=== PATIENT | female | born 1975 | race Caucasian/White ===

== ENCOUNTER 2018-10-28 19:05 | Emergency (ER) | payer OTHER ==
[~2018-10-28] VITALS: Wt 74.5 kg
[2018-10-28] MEDS ORDERED: SOD CHLORIDE 0.9% 1,000 ML IV STA (20:54)
[2018-10-28] MEDS ORDERED: NITR-58 PO (22:46)
--- NOTE | 2018-10-28 22:48 | ERD ---
ER Documentation Chief Complaint Chief Complaint SENT BY PMD; DX ANEMIA, C/O DIZZINESS, CONFUSION X'S 1 WEEK HPI Patient is a 43-year-old female with rheumatoid arthritis who presents for anemia. The patient had laboratory studies done on October 18 and was sent for a hemoglobin of 7.7. The patient is vomiting "foam" but no blood. She says that her urine is orange as well. The patient denies rectal bleeding or other bleeding. The patient has had no antibiotics for possible urine infection as well. Upon review of old medical records this is the patient's first visit to the emergency department. The patient's primary doctor is Dr. Haas. ROS All systems reviewed and are negative except as per history of present illness. Medications Home Meds Active Scripts Nitrofurantoin Monohyd Macrocr* (Macrobid*) 100 Mg Capsr, 100 MG PO BID for 7 Days, CAP Prov:GUS YOUNG MD 10/28/18 Allergies Allergies: Coded Allergies: No Known Allergy (Unverified , 10/28/18) PMhx/Soc Hx Miscellaneous Medical Probl: Yes (ra) Hx Alcohol Use: No Hx Substance Use: No Hx Tobacco Use: No Smoking Status: Never smoker FmHx Family History: diabetes Physical Exam Vitals Vital Signs Date Temp Pulse Resp B/P (MAP) Pulse Ox O2 O2 Flow FiO2 Time Delivery Rate 10/28/18 98.9 89 18 133/82 100 Room Air 20:53 (99) 10/28/18 Nasal 20:53 Cannula 10/28/18 98.9 83 18 145/72 100 19:33 (96) Physical Exam Const: No acute distress Head: Atraumatic Eyes: Normal Conjunctiva ENT: Normal External Ears, Nose and Mouth. Neck: Full range of motion. No meningismus. Resp: Clear to auscultation bilaterally Cardio: Regular rate and rhythm, no murmurs Abd: Soft, non tender, non distended. Normal bowel sounds Skin: Pale skin Back: No midline or flank tenderness Ext: No cyanosis, or edema Neur: Awake and alert Psych: Normal Mood and Affect Result Diagram: 10/28/18 2100 10/28/18 2100 Results 24 hrs Laboratory Tests Test 10/28/18 21:00 10/28/18 21:13 White Blood Count 7.6 10^3/ul Red Blood Count 4.03 10^6/ul Hemoglobin 9.0 g/dl Hematocrit 30.4 % Mean Corpuscular Volume 75.4 fl Mean Corpuscular Hemoglobin 22.3 pg Mean Corpuscular Hemoglobin Concent 29.6 g/dl Red Cell Distribution Width 16.5 % Platelet Count 490 10^3/UL Mean Platelet Volume 9.2 fl Immature Granulocytes % 0.100 % Neutrophils % 53.9 % Lymphocytes % 34.3 % Monocytes % 9.0 % Eosinophils % 1.8 % Basophils % 0.9 % Nucleated Red Blood Cells % 0.0 /100WBC Immature Granulocytes # 0.010 10^3/ul Neutrophils # 4.1 10^3/ul Lymphocytes # 2.6 10^3/ul Monocytes # 0.7 10^3/ul Eosinophils # 0.1 10^3/ul Basophils # 0.1 10^3/ul Nucleated Red Blood Cells # 0.0 10^3/ul Prothrombin Time 11.7 Sec Prothrombin Time Ratio 0.9 INR International Normalized Ratio 0.85 Activated Partial Thromboplast Time 24.5 Sec Urine Color YELLOW Urine Clarity CLOUDY Urine pH 5.0 Urine Specific [place] 1.023 Urine Ketones TRACE mg/dL Urine Nitrite POSITIVE mg/dL Urine Bilirubin NEGATIVE mg/dL Urine Urobilinogen 2+ mg/dL Urine Leukocyte Esterase NEGATIVE [place]/ul Urine Microscopic RBC 10 /HPF Urine Microscopic WBC 5 /HPF Urine Squamous Epithelial Cells MODERATE /HPF Urine Bacteria FEW /HPF Urine Mucus FEW /HPF Urine Hemoglobin 3+ mg/dL Urine Glucose NEGATIVE mg/dL Urine Total Protein NEGATIVE mg/dl Sodium Level 142 mmol/L Potassium Level 3.9 mmol/L Chloride Level 107 mmol/L Carbon Dioxide Level 26 mmol/L Anion Gap 9 Blood Urea Nitrogen 15 mg/dl Creatinine 0.54 mg/dl Est Glomerular Filtrat Rate mL/min > 60 mL/min Glucose Level 92 mg/dl Calcium Level 9.7 mg/dl Total Bilirubin 0.4 mg/dl Direct Bilirubin 0.00 mg/dl Indirect Bilirubin 0.4 mg/dl Aspartate Amino Transf (AST/SGOT) 26 IU/L Alanine Aminotransferase (ALT/SGPT) 15 IU/L Alkaline Phosphatase 78 IU/L Troponin I < 0.012 ng/ml Total Protein 8.7 g/dl Albumin 4.9 g/dl Globulin 3.80 g/dl Albumin/Globulin Ratio 1.28 POC Beta HCG, Qualitative NEGATIVE Current Medications Medications Dose Sig/Jammie Start Time Status Last (Trade) Ordered Route PRN Stop Time Admin Dose Reason Admin Sodium 1,000 ml @ Q1H STAT 10/28/18 DC 10/28/18 Chloride 1,000 mls/hr IV 20:54 21:43 10/28/18 21:53 100 mg ONCE ONCE 10/28/18 Nitrofurantoi PO 23:00 n 10/28/18 23:01 Macrocrystals (Macrobid) Procedures/MDM EKG read by me: Rate/Rhythm: Regular rate and rhythm at a rate of 65 Intervals: Normal Impression: No evidence of ischemia or arrhythmia Patient is a 43-year-old female with rheumatoid arthritis who presents with an emia. The patient has a hemoglobin of 9.0 today does not require transfusion. Urinalysis does show acute infection and the patient was given Macrobid and a prescription for Macrobid. I do not believe she requires further work-up or admission to the hospital at this time. The patient should follow-up with the primary doctor within 1 week. She can return for worsening symptoms. Departure Diagnosis: Primary Impression: Anemia Anemia type: unspecified type Qualified Codes: D64.9 - Anemia, unspecified Additional Impressions: Dizziness Cystitis Condition: Fair Patient Instructions: Anemia, Cystitis Referrals: Your doctor Additional Instructions: Call your primary care doctor TOMORROW for an appointment during the next 1 WEEK.Tell the engineering secretary that you were referred from this facility.See the doctor sooner or return here if your condition worsens before your appointment time. GUS YOUNG MD October 28, 2018 22:48
[2018-10-28] MEDS ORDERED: NITROFURANTOIN (SR) 100 MG CAP PO ONE (23:00)
[2018-10-28 23:04] VITALS: BP 133/72; PULSE 90; RESP 16
--- NOTE | 2018-10-29 14:25 | RADRPT ---
Vent Rate: 65 bpm RR Interval: 0 msec W[place] Interval: 142 msec QRS Duration: 68 msec QT Interval: 404 msec QTC Interval: 420 msec P-R-T [place]: 64 - 60 - 56 degrees Normal sinus rhythm Normal ECG Electronically Signed By: [facility]
== END 2018-10-28 23:10 | disposition home or self-care (01) ==
LOC: E/R 19:05
DX: D64.9 Anemia, unspecified (principal); N30.90 Cystitis, unspecified without hematuria
CPT/HCPCS: 36415; 80053; 81001; 81025; 84484; 85025; 85610; 85730; 86850; 86900; 86901; 93005; J7030; Z7502; Z7610

== ENCOUNTER 2019-01-22 12:56 | Emergency (ER) | payer OTHER ==
[~2019-01-22] VITALS: Ht 154.9 cm; Wt 75.0 kg
[~2019-01-22 12:56] MED LIST: NITR-58 PO
[2019-01-22 13:00] VITALS: Ht 154.9 cm; Wt 75.0 kg
[2019-01-22] MEDS ORDERED: SOD CHLORIDE 0.9% 500 ML IV STA (13:12)
[2019-01-22] MEDS ORDERED: HYDROmorphONE 1 MG/ML SYG IV STA (13:12)
[2019-01-22] MEDS ORDERED: ONDANSETRON 4 MG INJ IV STA (13:12)
[2019-01-22 14:00] VITALS: BP 108/70; PULSE 75; RESP 18
--- NOTE | 2019-01-22 14:22 | ERD ---
ER Documentation Chief Complaint Chief Complaint VOMITING X 2 DAYS HPI 44-year-old female presents the emergency department complaining of vomiting. Patient has a long-standing history of multiple presentations for similar type episodes. Patient states over the last 2 days she is had a nonspecific visceral abdominal discomfort associated with nonbilious, nonbloody emesis. After having multiple episodes of vomiting that she was not able to control, she came to the emergency department for evaluation. She reports no concurrent fever or diarrhea. She reports no urinary or gynecologic symptoms. ROS All systems reviewed and are negative except as per history of present illness. Medications Home Meds Active Scripts Nitrofurantoin Monohyd Macrocr* (Macrobid*) 100 Mg Capsr, 100 MG PO BID for 7 Days, CAP Prov:GUS YOUNG MD 10/28/18 Allergies Allergies: Coded Allergies: No Known Allergy (Unverified , 10/28/18) PMhx/Soc Hx Miscellaneous Medical Probl: Yes (RA, ANEMIA) Hx Alcohol Use: No Hx Substance Use: No Hx Tobacco Use: No Smoking Status: Never smoker FmHx Noncontributory for chief complaint Physical Exam Vitals Vital Signs Date Temp Pulse Resp B/P (MAP) Pulse Ox O2 O2 Flow FiO2 Time Delivery Rate 01/22/19 99.3 76 18 142/81 99 13:00 (101) Physical Exam GENERAL: The patient is actively vomiting HEENT: Pupils equal, round, and reactive to light. EOMI. There is no scleral icterus. NECK: C-spine is soft and supple, there is no meningismus. There is no cervical lymphadenopathy. LUNGS: Clear to auscultation bilaterally. There are no rales, wheezes or rhonchi. HEART: Regular rate and rhythm, no murmurs, clicks, rubs or gallops. ABDOMEN: Soft, non-tender, non-distended. There are bowel sounds in all four quadrants. No rebound or guarding. EXTREMITIES: There is no peripheral cyanosis or edema. No focal swelling or erythema. NEURO: The patient moves all four extremities with 5/5 strength. Cranial nerves II - XII are intact. Normal gait. Alert and oriented SKIN: There is no apparent rash or petechiae. HEME/LYMPHATIC: There is no evidence of excessive bruising or lymphedema. PSYCHIATRIC: The patient does not appear anxious or depressed. Result Diagram: 01/22/19 1324 01/22/19 1323 Results 24 hrs Laboratory Tests Test 01/22/19 13:23 01/22/19 13:24 Sodium Level 140 mmol/L Potassium Level 3.7 mmol/L Chloride Level 106 mmol/L Carbon Dioxide Level 21 mmol/L Anion Gap 13 Blood Urea Nitrogen 9 mg/dl Creatinine 0.60 mg/dl Est Glomerular Filtrat Rate mL/min > 60 mL/min Glucose Level 113 mg/dl Calcium Level 10.5 mg/dl Total Bilirubin 0.7 mg/dl Direct Bilirubin 0.00 mg/dl Indirect Bilirubin 0.7 mg/dl Aspartate Amino Transf (AST/SGOT) 22 IU/L Alanine Aminotransferase (ALT/SGPT) 16 IU/L Alkaline Phosphatase 77 IU/L Total Protein 8.8 g/dl Albumin 5.1 g/dl Globulin 3.70 g/dl Albumin/Globulin Ratio 1.37 Lipase 102 U/L Beta HCG, Quantitative < 2.4 mIU/ml White Blood Count 8.8 10^3/ul Red Blood Count 4.38 10^6/ul Hemoglobin 9.6 g/dl Hematocrit 32.5 % Mean Corpuscular Volume 74.2 fl Mean Corpuscular Hemoglobin 21.9 pg Mean Corpuscular Hemoglobin Concent 29.5 g/dl Red Cell Distribution Width 17.2 % Platelet Count 495 10^3/UL Mean Platelet Volume 9.4 fl Immature Granulocytes % 0.300 % Neutrophils % 70.7 % Lymphocytes % 21.8 % Monocytes % 6.2 % Eosinophils % 0.2 % Basophils % 0.8 % Nucleated Red Blood Cells % 0.0 /100WBC Immature Granulocytes # 0.030 10^3/ul Neutrophils # 6.2 10^3/ul Lymphocytes # 1.9 10^3/ul Monocytes # 0.5 10^3/ul Eosinophils # 0.0 10^3/ul Basophils # 0.1 10^3/ul Nucleated Red Blood Cells # 0.0 10^3/ul Current Medications Medications Dose Sig/Jammie Start Time Status Last (Trade) Ordered Route PRN Stop Time Admin Dose Reason Admin Sodium 500 ml @ Q1H STAT 01/22/19 DC 01/22/19 Chloride 500 mls/hr IV 13:12 13:26 01/22/19 14:11 1 mg ONCE STAT 01/22/19 DC 01/22/19 Hydromorphone IV 13:12 13:26 HCl 01/22/19 13:13 (Dilaudid) Ondansetron 4 mg ONCE STAT 01/22/19 DC 01/22/19 HCl (Zofran IV 13:12 13:25 Inj) 01/22/19 13:13 Procedures/MDM Patient was taken to a room, seen and evaluated. Comfort measures were initiated. Diagnostic tests were ordered and reviewed. 3 LEAD RHYTHM STRIP: Normal sinus rhythm without ectopy REEVALUATION: 1415: Diagnostic tests were appreciated and discussed with the patient. Patient's vomiting improved significantly. Patient's abdomen remained benign. MEDICAL DECISION MAKIN-year-old female with a significant chronic medical conditions presents the emergency department with vomiting. Differential diagnosis entertained included GI and other intra-abdominal concerns, concerns or guarding polypharmacy as well as other significant issues. After supportive care in the emergency department, her vomiting is stopped and her abdomen remains benign with no clinical evidence of appendicitis, cholecystitis or other high risk intra-abdominal concerns. Her electrolytes confirmed that she has no significant dehydration. At this time, my working diagnosis at this is likely medication related. Patient appears to be otherwise nontoxic now and seems appropriate for discharge. Departure Diagnosis: Primary Impression: Vomiting Condition: Stable Patient Instructions: Vomiting (6Y-Adult) Additional Instructions: See your doctor for follow-up as discussed. Take a copy of your test results, if appropriate, to this follow-up visit. See your doctor or return here if your symptoms do not improve as expected. At any time, please return to the emergency department for any change or worsening in her symptoms. MELIZA HEIN Jan 22, 2019 14:22
== END 2019-01-22 14:50 | disposition home or self-care (01) ==
LOC: E/R 12:56
DX: R11.10 Vomiting, unspecified (principal)
CPT/HCPCS: 36415; 80053; 83690; 84702; 85025; 96374; 96375; J1170; J2405; J7040; Z7502

== ENCOUNTER 2019-01-22 21:09 | Inpatient (IN) | payer OTHER ==
[~2019-01-22] VITALS: Ht 170.2 cm; Wt 71.5 kg
[2019-01-22] MEDS ORDERED: SOD CHLORIDE 0.9% 1,000 ML IV STA (22:11)
[2019-01-22] MEDS ORDERED: PANTOPRAZOLE 40 MG INJ IV STA (22:11)
[2019-01-22] MEDS ORDERED: morphine 4 MG/ML VIAL IV STA (22:18)
[2019-01-22] MEDS ORDERED: ONDANSETRON 4 MG INJ IV STA (22:18)
--- NOTE | 2019-01-22 22:19 | ERD ---
ER Documentation Chief Complaint Chief Complaint was here in AM; same complaint; nausea vominting; black stool HPI Patient is a 44-year-old female with a history of rheumatoid arthritis who presents with vomiting and black stools. The patient has vomiting for the past 2 days as well as abdominal pain. She has vaginal bleeding. She has black stools. Her symptoms started 2 days ago. This is her second visit today for the same. She was worked up and discharged earlier. She has never had an endoscopy or colonoscopy. She is not on blood thinning medicines. Upon review of old medical records this is the patient's third visit to the ER since October 2018. Her primary doctor is Dr. Haas. ROS All systems reviewed and are negative except as per history of present illness. Medications Home Meds Active Scripts Nitrofurantoin Monohyd Macrocr* (Macrobid*) 100 Mg Capsr, 100 MG PO BID for 7 Days, CAP Prov:GUS YOUNG MD 10/28/18 Allergies Allergies: Coded Allergies: No Known Allergy (Unverified , 10/28/18) PMhx/Soc Hx Miscellaneous Medical Probl: Yes (RA, ANEMIA) Hx Alcohol Use: No Hx Substance Use: No Hx Tobacco Use: No FmHx Family History: diabetes Physical Exam Vitals Vital Signs Date Temp Pulse Resp B/P (MAP) Pulse Ox O2 O2 Flow FiO2 Time Delivery Rate 01/22/19 97.2 70 21 133/80 100 21:20 (97) Physical Exam Const: Moderate distress Head: Atraumatic Eyes: Normal Conjunctiva ENT: Normal External Ears, Nose and Mouth. Neck: Full range of motion. No meningismus. Resp: Clear to auscultation bilaterally Cardio: Regular rate and rhythm, no murmurs Abd: Soft, diffuse tenderness to palpation without rebound or guarding Skin: No petechiae or rashes Back: No midline or flank tenderness Ext: No cyanosis, or edema Neur: Awake and alert Psych: Normal Mood and Affect Result Diagram: 01/22/19223901/22/192239 Results 24 hrs Laboratory Tests Test 01/22/19 22:40 01/22/19 23:02 White Blood Count 8.0 10^3/ul Red Blood Count 4.04 10^6/ul Hemoglobin 8.8 g/dl Hematocrit 29.6 % Mean Corpuscular Volume 73.3 fl Mean Corpuscular Hemoglobin 21.8 pg Mean Corpuscular Hemoglobin Concent 29.7 g/dl Red Cell Distribution Width 17.2 % Platelet Count 465 10^3/UL Mean Platelet Volume 9.5 fl Immature Granulocytes % 0.300 % Neutrophils % 82.8 % Lymphocytes % 12.5 % Monocytes % 3.9 % Eosinophils % 0.0 % Basophils % 0.5 % Nucleated Red Blood Cells % 0.0 /100WBC Immature Granulocytes # 0.020 10^3/ul Neutrophils # 6.6 10^3/ul Lymphocytes # 1.0 10^3/ul Monocytes # 0.3 10^3/ul Eosinophils # 0.0 10^3/ul Basophils # 0.0 10^3/ul Nucleated Red Blood Cells # 0.0 10^3/ul Prothrombin Time 13.0 Sec Prothrombin Time Ratio 1.0 INR International Normalized Ratio 0.97 Activated Partial Thromboplast Time 23.0 Sec Sodium Level 140 mmol/L Potassium Level 3.4 mmol/L Chloride Level 107 mmol/L Carbon Dioxide Level 20 mmol/L Anion Gap 13 Blood Urea Nitrogen 10 mg/dl Creatinine 0.52 mg/dl Est Glomerular Filtrat Rate mL/min > 60 mL/min Glucose Level 219 mg/dl Calcium Level 10.3 mg/dl Total Bilirubin 0.6 mg/dl Direct Bilirubin 0.00 mg/dl Indirect Bilirubin 0.6 mg/dl Aspartate Amino Transf (AST/SGOT) 21 IU/L Alanine Aminotransferase (ALT/SGPT) 17 IU/L Alkaline Phosphatase 72 IU/L Troponin I < 0.012 ng/ml Total Protein 8.4 g/dl Albumin 4.9 g/dl Globulin 3.50 g/dl Albumin/Globulin Ratio 1.40 POC Beta HCG, Qualitative NEGATIVE Current Medications Medications Dose Sig/Jammie Start Time Status Last (Trade) Ordered Route PRN Stop Time Admin Dose Reason Admin Sodium 1,000 ml @ Q1H STAT 01/22/19 DC 01/22/19 Chloride 1,000 mls/hr IV 22:11 22:33 01/22/19 23:10 40 mg ONCE STAT 01/22/19 DC 01/22/19 Pantoprazole IV 22:11 22:33 (Protonix 01/22/19 22:12 Iv) Morphine 4 mg ONCE STAT 01/22/19 DC 01/22/19 Sulfate IV 22:18 22:33 (morphine) 01/22/19 22:19 Ondansetron 4 mg ONCE STAT 01/22/19 DC 01/22/19 HCl (Zofran IV 22:18 22:32 Inj) 01/22/19 22:19 Ondansetron 4 mg BRIDGE ORDER 01/22/19 HCl (Zofran PRN IV 23:30 Inj) NAUSEA/VOMITI 01/23/19 23:29 NG 650 mg ER BRIDGE 01/22/19 Acetaminophen PRN PO 23:30 (Tylenol .MILD PAIN 01/23/19 23:29 Tab) 1-3 OR TEMP Procedures/MDM EKG read by me: Rate/Rhythm: Regular rate and rhythm Intervals: Normal Impression: No evidence of ischemia or arrhythmia Patient is a 44-year-old female who presents with vomiting, abdominal pain, and black stools. Her hemoglobin is dropped from 9.6-8.8 and I am concerned about acute GI bleed. The patient has vomiting, abdominal pain, and black stools. The patient will be admitted to the care of Dr. Kim from the panel team to a medical surgical bed. The patient will be given IV fluids, Protonix, and may require GI consultation for endoscopy or colonoscopy or both. She does not require transfusion at this time. Belkys-Blatchford Bleeding Score (GBS) from [email or web address] on 01/22/2019 All calculations should be rechecked by clinician prior to use RESULT SUMMARY: 7 points A GBS greater than zero suggests a High Risk GI bleed that is likely to require medical intervention: transfusion, endoscopy, or surgery. A higher GBS also correlated with a higher likelihood of needing intervention (scores ?6 are associated with >50% risk of needing intervention) INPUTS: Hemoglobin > 8.8 g/dL BUN > 9 mg/dL Initial systolic BP > 133 mm Hg Sex > 1 = Female Heart rate ?100 > 0 = No Melena present > 1 = Yes Recent syncope > 0 = No Hepatic disease history > 0 = No Cardiac failure present > 0 = No Departure Diagnosis: Primary Impression: GI bleed GI bleed type/associated pathology: unspecified gastrointestinal hemorrhage type Qualified Codes: K92.2 - Gastrointestinal hemorrhage, unspecified Additional Impressions: Nausea and vomiting Vomiting type: unspecified Vomiting Intractability: non-intractable Qualified Codes: R11.2 - Nausea with vomiting, unspecified Abdominal pain Abdominal location: generalized Qualified Codes: R10.84 - Generalized abdominal pain Condition: Fair GUS YOUNG MD Jan 22, 2019 22:19
[2019-01-22] MEDS ORDERED: ACETAMINOPHEN 325 MG TAB PO PRN (23:30)
[2019-01-22] MEDS ORDERED: ONDANSETRON 4 MG INJ IV PRN (23:30)
[2019-01-23] MEDS ORDERED: morphine 4 MG/ML VIAL IV STA (00:12)
[2019-01-23] MEDS ORDERED: SOD CHLORIDE 0.9% 100 ML ONE (00:16)
[2019-01-23] MEDS ORDERED: IOHEXOL 300MG/ML 150 ML BTL ONE (00:16)
[2019-01-23] MEDS: SOD CHLORIDE 0.9% 1,000 ML IV SCH ×3 (00:27→12:47)
[2019-01-23] MEDS ORDERED: morphine 2 MG INJ IV PRN (00:30)
[2019-01-23] MEDS ORDERED: NACL 0.9% 3 ML SYG IV SCH (00:30)
[2019-01-23] MEDS ORDERED: ACETAMINOPHEN 325 MG TAB PO PRN (00:30)
[2019-01-23 01:16] VITALS: Ht 170.2 cm; Wt 71.5 kg
[2019-01-23 01:17] VITALS: BP 110/63; PULSE 88; RESP 19
[2019-01-23] MEDS ORDERED: HYOSCYAMINE 0.125 MG SUBL TAB PO PRN (02:30)
--- NOTE | 2019-01-23 02:56 | HP ---
Date/Time of Note Date/Time of Note DATE: 01/23/19 TIME: 02:51 Assessment/Plan VTE Prophylaxis SCD applied (from Ns): Yes Pharmacological prophylaxis: NA/contraindicated Pharm contraindication: low risk/ambulating Assessment/Plan Hospital Course This is a 44-year-old female being admitted to the [facility] floor for: #1 lower GI bleed: Patient does report dark stools. Hemoglobin did drop from 9.6 earlier today to 8.8. Will trend CBC every 6 hours. Type and screen and transfuse for hemoglobin less than 7.5 Protonix IV. We will keep the patient n.p.o. CT abdomen pelvis with and without IV contrast was ordered that showed mild biliary tree dilatation, cholelithiasis. There was no other acute abnormalities found. Her LFTs remain normal. Will consult GI . Of note patient is also currently on her menstrual cycle. #2 severe abdominal pain: Possibly secondary to gastroenteritis, biliary colic, versus genitourinary. CT of the abdomen pelvis did not show any acute abnormalities. She does have gallstones. Mild biliary dilatation however normal LFTs. Will obtain a right upper quadrant ultrasound. We will give the patient Levsin as needed. Dilaudid for pain. #3 microcytic anemia: Likely multifactorial secondary to underlying GI bleed, menstrual cycle. CBC every 6 hours. Transfuse for hemoglobin less than 7.5. Will check iron stores. Urinalysis does show RBCs however this is likely secondary to her current menstrual cycle. #4 rheumatoid arthritis: Currently denies any joint pains. Will need to confirm patient's home meds and continue when indicated #5 history of migraines: Denies any symptoms at the current time. Will need to be mindful of NSAID use given current bleeding #6 fibromyalgia: Currently not on any medications, supportive care #7 history of obesity: Patient is status post gastric bypass. #8 peripheral neuropathy: We will need to discuss if patient is on any medi cations for this. And then continue them as indicated #9 DVT GI prophylaxis: SCDs, Protonix IV Further treatment strategy will be implemented as per the clinical course. Result Diagram: 01/22/19 2240 01/22/19 2240 Results 24hrs Laboratory Tests Test 01/22/19 22:40 01/22/19 23:02 White Blood Count 8.0 Red Blood Count 4.04 L Hemoglobin 8.8 L Hematocrit 29.6 L Mean Corpuscular Volume 73.3 L Mean Corpuscular Hemoglobin 21.8 L Mean Corpuscular Hemoglobin Concent 29.7 L Red Cell Distribution Width 17.2 H Platelet Count 465 H Mean Platelet Volume 9.5 Immature Granulocytes % 0.300 Neutrophils % 82.8 H Lymphocytes % 12.5 L Monocytes % 3.9 Eosinophils % 0.0 Basophils % 0.5 Nucleated Red Blood Cells % 0.0 Immature Granulocytes # 0.020 Neutrophils # 6.6 Lymphocytes # 1.0 Monocytes # 0.3 Eosinophils # 0.0 Basophils # 0.0 Nucleated Red Blood Cells # 0.0 Erythrocyte Sedimentation Rate 20 Prothrombin Time 13.0 Prothrombin Time Ratio 1.0 INR International Normalized Ratio 0.97 Activated Partial Thromboplast Time 23.0 Sodium Level 140 Potassium Level 3.4 L Chloride Level 107 Carbon Dioxide Level 20 L Anion Gap 13 Blood Urea Nitrogen 10 Creatinine 0.52 Est Glomerular Filtrat Rate mL/min > 60 Glucose Level 219 # Calcium Level 10.3 H Total Bilirubin 0.6 Direct Bilirubin 0.00 Indirect Bilirubin 0.6 Aspartate Amino Transf (AST/SGOT) 21 Alanine Aminotransferase (ALT/SGPT) 17 Alkaline Phosphatase 72 Troponin I < 0.012 C-Reactive Protein 0.8 Total Protein 8.4 H Albumin 4.9 Globulin 3.50 H Albumin/Globulin Ratio 1.40 Lipase 99 POC Beta HCG, Qualitative NEGATIVE HPI/ROS Admit Date/Time Admit Date/Time Jan 22, 2019 at 23:16 Hx of Present Illness Chief complaint: Abdominal pain, vomiting, black stools This is a 44-year-old female with a past medical history of rheumatoid arthritis, migraines, fibromyalgia and peripheral neuropathy who presented to the emergency department with recurrent vomiting and black stools. Patient originally came to the emergency department earlier on 01/22/2019 was subsequently discharged. Her symptoms started approximately 2 days ago. She states that she did go to [facility] 2 days ago and thinks it may have started after that. She denies any fevers. Upon my examination of the patient at the bedside she did look pretty uncomfortable despite receiving morphine earlier. She also was retching. She did report dark stools as well as vaginal bleeding however she is on her menstrual cycle. She has never had a colonoscopy or endoscopy performed. Her hemoglobin was noted to be 9 point 6 in the AM and then 8.8 upon return to the emergency department. She denies any illicit drug use or alcohol use. Allergies: NKDA Medications: Unknown ROS Const: As per HPI Eyes : No pain discharge or redness or change in visual acuity ENT: No pain, sore throat, congestion, congestion, dysphagia or discharge Respiratory: No shortness of breath, cough, sputum, wheezing, or pleuritic pain Cardiovascular: No chest pain, palpitation, PND, or edema GI : As per HPI Genitourinary: As per HPI Musculoskeletal: No joint pain, back pain, neck pain, restricted range of motion in neck or joints Skin: No rash, bruising or hives Neuro: No headache, dizziness, syncope, seizure, focal weakness Endocrine: No polyuria, polydipsia, temperature intolerance Psych: No hallucination, depression, anxiety or suicidal ideation PMH/Family/Social Past Medical History Rheumatoid arthritis Migraines Fibromyalgia Arthritis History of obesity status post gastric bypass Peripheral neuropathy Medications Current Medications Ondansetron HCl (Zofran Inj) 4 mg BRIDGE ORDER PRN IV NAUSEA/VOMITING Last administered on 01/23/19at 00:27; Admin Dose 4 MG; Start 01/22/19 at 23:30; Stop 01/23/19 at 23:29 Acetaminophen (Tylenol Tab) 650 mg ER BRIDGE PRN PO .MILD PAIN 1-3 OR TEMP; Start 01/22/19 at 23:30; Stop 01/23/19 at 23:29 Sodium Chloride 1,000 ml @ 80 mls/hr [id number] IV Last administered on 01/23/19at 00:27; Admin Dose 80 MLS/HR; Start 01/23/19 at 00:17 IV Flush (NS 3 ml) 3 ml PER PROTOCOL IV ; Start 01/23/19 at 00:30 Ondansetron HCl (Zofran Inj) 4 mg Q4H PRN IV NAUSEA/VOMITING; Start 01/23/19 at 00:30 Acetaminophen (Tylenol Tab) 650 mg Q6H PRN PO .PAIN 1-3 OR TEMP; Start 01/23/19 at 00:30 Hydromorphone HCl (Dilaudid) 0.5 mg Q4H PRN IV SEVERE PAIN LEVEL 7-10; Start 01/23/19 at 02:30 Hyoscyamine (Levsin (Sl)) 0.125 mg Q4H PRN PO INTESTINAL SPASMS/CRAMPING; Start 01/23/19 at 02:30 Coded Allergies: No Known Allergy (Unverified , 10/28/18) Past Surgical History Status post gastric bypass Lower back surgery Family History Significant Family History: no pertinent family hx Social History Alcohol Use: none Smoking Status: Never smoker Drug Use: none Exam/Review of Systems Vital Signs Vitals Vital Signs Date Temp Pulse Resp B/P (MAP) Pulse Ox O2 O2 Flow FiO2 Time Delivery Rate 01/23/19 98.3 88 19 110/63 100 Room Air 01:17 (79) Intake and Output 01/22/19 01/22/19 01/23/19 1515:00 23:00 07:00 IntakeIntake Total 1000 ml BalanceBalance 1000 ml Exam Exam General: Patient in bed in severe distress from abdominal pain HEENT: Atraumatic, normocephalic. The pupils are equal, round and reactive. Extraocular motor are intact Neck: Supple with full range of motion. No rigidity or meningismus Chest: Nontender Lungs: Clear to auscultation bilaterally no crackles rales or wheezing Heart: Normal S1-S2, Regular rhythm and rate. No murmur, S3, or S4 Abdomen: Soft , generalized tenderness to palpation, nondistended , bowel sounds are present. No guarding but no rebound. No CVA tenderness ablation bilaterally Extremities: Normal to inspection, no edema no cyanosis Neurologic: Normal mental status, speech normal, cranial nerves II through XII are intact, motor and sensory are intact, Additional Comments PROCEDURE: CT abdomen and pelvis with and without contrast. CLINICAL INDICATION: Abdominal pain. TECHNIQUE: CT scan of the abdomen and pelvis with contrast was performed on a multi-detector high-resolution CT scanner. The patient was scanned before and after the uncomplicated administration of 100 cc of Omnipaque 300 intravenous contrast. Coronal and sagittal reformatted images were obtained from the axial source images. Images were reviewed on a high-resolution PACS workstation. DICOM images are available. One or more of the following dose reduction techniques were used: - Automated exposure control. - Adjustment of the mA and/or kV according to patient size. - Use of iterative reconstruction technique. Exam CTD/vol = 18.83 mGy. Total exam DLP = 2118.36 mGy-cm. COMPARISON: None. FINDINGS: Evaluation of the lung bases demonstrates minimal bibasilar atelectasis. Abdomen: The liver is normal in size with no focal mass identified. There is mild dilatation of the biliary tree. The gallbladder is not distended. Small gallstones are identified. The spleen, pancreas and bilateral adrenal glands are within normal limits. Bilateral kidneys are normal in size with symmetric enhancement. There is no radiopaque renal or ureteral calculus identified. There is no focal mass, hydronephrosis or hydroureter. There is no retroperitoneal adenopathy. The abdominal aorta is of normal caliber with scattered atherosclerotic calcifications. There is prior gastric surgery. There is no bowel obstruction or free air. A normal appendix is identified. There are few scattered colonic diverticuli without evidence of diverticulitis. There is no ascites. Pelvis: The bladder is moderately distended. The uterus and adnexa are within normal limits. There is no significant pelvic adenopathy or free fluid. Evaluation of the osseous structures demonstrates no suspicious lytic or blastic lesion. There is prior interbody fusion at L4-L5. IMPRESSION: Mild dilatation of the biliary tree. Cholelithiasis. Prior gastric surgery. Few scattered colonic diverticuli without evidence of diverticulitis. Vascular calcifications reflective of atherosclerosis. Moderately distended bladder. Otherwise no acute abnormality identified within the abdomen and pelvis. .Rick Morocho MD, Date Time Electronically viewed and signed by .Rick Morocho MD, MD on 01/23/2019 02:26 .T/ CC: MARIELY VILLANUEVA [id number] MARIELY VILLANUEVA Jan 23, 2019 02:56
[2019-01-23] MEDS: HYDROmorphONE 0.5 MG/0.5 ML SYG IV PRN ×5 (03:53→20:08)
[2019-01-23] MEDS: PANTOPRAZOLE 40 MG INJ IV SCH (06:30)
[2019-01-23 08:00] VITALS: BP 121/68; PULSE 75; RESP 18
[2019-01-23] MEDS: ONDANSETRON 4 MG INJ IV PRN ×4 (08:22→20:08)
--- NOTE | 2019-01-23 11:53 | PN ---
Date/Time of Note Date/Time of Note DATE: 01/23/19 TIME: 11:49 Assessment/Plan VTE Prophylaxis Risk score (from Ns)>0 risk: 3 SCD applied (from Ns): Yes SCD contraindicated: low risk/ambulating Pharmacological prophylaxis: NA/contraindicated Pharm contraindication: bleeding Lines/Catheters IV Catheter Type (from Nrs): Peripheral IV Assessment/Plan Hospital Course Assessment plan 1. GI bleed likely lower, appreciate GI assistance. May need colonoscopy and EGD 2. Morbid obesity status post gastric bypass. If colonoscopy is unremarkable consider hemorrhoidal bleed or even surgical stricture/ulcer 3. Chronic pain disorder on NSAIDs [place]. Continue PPI adjust therapy needs behavioral health chronic pain management 4. Chronic back pain status post surgery more than 12 months ago 5. Chronic fibromyalgia 6. Chronic migraines 7. Chronic rheumatoid arthritis review medications. 8. Gallstones 9. Anemia likely of chronic disease rule out acute blood loss 10. Past substance drug use? S: recent hematochezia 4 days. Abdominal pain crampy twisting in nature. No known aggravating or relieving factors. Positive nausea. No previous similar d iscomfort. Has been on naproxen for about 16 months post back surgery. Along with [place] has had intermittent diarrhea constipation. Recently had antibiotics for a tooth infection. No alcohol use. States she is sober clean? No history of endoscopy. O: Vital signs stable PE No pallor adenopathy or jaundice Regular no murmur gallop Clear Bowel sounds diminished mild tender nondistended no RR G No edema/vomiting/rash Result Diagram: 01/22/19223901/22/19 2240 Results 24hrs Laboratory Tests Test 01/22/19 22:40 01/22/19 23:02 01/23/19 04:42 01/23/19 07:20 White Blood 8.0 Count Red Blood Count 4.04 L Hemoglobin 8.8 L Hematocrit 29.6 L Mean Corpuscular 73.3 L Volume Mean Corpuscular 21.8 L Hemoglobin Mean Corpuscular 29.7 L Hemoglobin Teresita nt Red Cell 17.2 H Distribution Width Platelet Count 465 H Mean Platelet 9.5 Volume Immature 0.300 Granulocytes % Neutrophils % 82.8 H Lymphocytes % 12.5 L Monocytes % 3.9 Eosinophils % 0.0 Basophils % 0.5 Nucleated Red 0.0 Blood Cells % Immature 0.020 Granulocytes # Neutrophils # 6.6 Lymphocytes # 1.0 Monocytes # 0.3 Eosinophils # 0.0 Basophils # 0.0 Nucleated Red 0.0 Blood Cells # Erythrocyte 20 Sedimentation Rate Prothrombin Time 13.0 Prothrombin Time 1.0 Ratio INR 0.97 International Normalized Ratio Activated 23.0 Partial Thrombop last Time Urine Color YELLOW YELLOW Urine Clarity SLIGHTLY CLOUDY SLIGHTLY CLOUDY A A Urine pH 6.0 6.0 Urine Specific 1.025 1.046 H [place] Urine Ketones 2+ H 1+ H Urine Nitrite NEGATIVE POSITIVE A Urine Bilirubin NEGATIVE NEGATIVE Urine 1+ H NEGATIVE Urobilinogen Urine Leukocyte NEGATIVE NEGATIVE Esterase Urine > 182 H 8 H Microscopic RBC Urine 2 3 Microscopic WBC Urine Squamous FEW Epithelial Cells Urine Bacteria FEW A FEW A Urine Mucus FEW A Urine Hemoglobin 3+ H 3+ H Urine Glucose 3+ H 2+ H Urine Total 1+ H NEGATIVE Protein Sodium Level 140 Potassium Level 3.4 L Chloride Level 107 Carbon Dioxide 20 L Level Anion Gap 13 Blood Urea 10 Nitrogen Creatinine 0.52 Est Glomerular > 60 Filtrat Rate mL/min Glucose Level 219 # Calcium Level 10.3 H Total Bilirubin 0.6 Direct Bilirubin 0.00 Indirect 0.6 Bilirubin Aspartate Amino 21 Transf (AST/SGOT ) Alanine 17 Aminotransferase (ALT/SGPT) Alkaline 72 Phosphatase Troponin I < 0.012 C-Reactive 0.8 Protein Total Protein 8.4 H Albumin 4.9 Globulin 3.50 H Albumin/Globulin 1.40 Ratio Lipase 99 Procalcitonin 0.05 Urine Opiates Positive Screen Urine Negative Barbiturates Urine Negative Amphetamines Screen Urine Negative Benzodiazepines Screen Urine Cocaine Negative Screen Urine Negative Cannabinoids Ethyl Alcohol < 10.0 H Level POC Beta HCG, NEGATIVE Qualitative Iron Level 41 Total Iron 527 H Binding Capacity Percent Iron 8 L Saturation Ferritin 8.6 Exam/Review of Systems Exam Vitals Vital Signs Date Temp Pulse Resp B/P (MAP) Pulse Ox O2 O2 Flow FiO2 Time Delivery Rate 01/23/19 98.3 88 19 110/63 100 Room Air 01:17 (79) Intake and Output 01/22/19 01/22/19 01/23/19 1515:00 23:00 07:00 IntakeIntake Total 1360 ml BalanceBalance 1360 ml Results Results 24hrs Laboratory Tests Test 01/22/19 22:40 01/22/19 23:02 01/23/19 04:42 01/23/19 07:20 White Blood 8.0 Count Red Blood Count 4.04 L Hemoglobin 8.8 L Hematocrit 29.6 L Mean Corpuscular 73.3 L Volume Mean Corpuscular 21.8 L Hemoglobin Mean Corpuscular 29.7 L Hemoglobin Teresita nt Red Cell 17.2 H Distribution Width Platelet Count 465 H Mean Platelet 9.5 Volume Immature 0.300 Granulocytes % Neutrophils % 82.8 H Lymphocytes % 12.5 L Monocytes % 3.9 Eosinophils % 0.0 Basophils % 0.5 Nucleated Red 0.0 Blood Cells % Immature 0.020 Granulocytes # Neutrophils # 6.6 Lymphocytes # 1.0 Monocytes # 0.3 Eosinophils # 0.0 Basophils # 0.0 Nucleated Red 0.0 Blood Cells # Erythrocyte 20 Sedimentation Rate Prothrombin Time 13.0 Prothrombin Time 1.0 Ratio INR 0.97 International Normalized Ratio Activated 23.0 Partial Thrombop last Time Urine Color YELLOW YELLOW Urine Clarity SLIGHTLY CLOUDY SLIGHTLY CLOUDY A A Urine pH 6.0 6.0 Urine Specific 1.025 1.046 H [place] Urine Ketones 2+ H 1+ H Urine Nitrite NEGATIVE POSITIVE A Urine Bilirubin NEGATIVE NEGATIVE Urine 1+ H NEGATIVE Urobilinogen Urine Leukocyte NEGATIVE NEGATIVE Esterase Urine > 182 H 8 H Microscopic RBC Urine 2 3 Microscopic WBC Urine Squamous FEW Epithelial Cells Urine Bacteria FEW A FEW A Urine Mucus FEW A Urine Hemoglobin 3+ H 3+ H Urine Glucose 3+ H 2+ H Urine Total 1+ H NEGATIVE Protein Sodium Level 140 Potassium Level 3.4 L Chloride Level 107 Carbon Dioxide 20 L Level Anion Gap 13 Blood Urea 10 Nitrogen Creatinine 0.52 Est Glomerular > 60 Filtrat Rate mL/min Glucose Level 219 # Calcium Level 10.3 H Total Bilirubin 0.6 Direct Bilirubin 0.00 Indirect 0.6 Bilirubin Aspartate Amino 21 Transf (AST/SGOT ) Alanine 17 Aminotransferase (ALT/SGPT) Alkaline 72 Phosphatase Troponin I < 0.012 C-Reactive 0.8 Protein Total Protein 8.4 H Albumin 4.9 Globulin 3.50 H Albumin/Globulin 1.40 Ratio Lipase 99 Procalcitonin 0.05 Urine Opiates Positive Screen Urine Negative Barbiturates Urine Negative Amphetamines Screen Urine Negative Benzodiazepines Screen Urine Cocaine Negative Screen Urine Negative Cannabinoids Ethyl Alcohol < 10.0 H Level POC Beta HCG, NEGATIVE Qualitative Iron Level 41 Total Iron 527 H Binding Capacity Percent Iron 8 L Saturation Ferritin 8.6 Medications Medication Current Medications Ondansetron HCl (Zofran Inj) 4 mg BRIDGE ORDER PRN IV NAUSEA/VOMITING Last administered on 01/23/19 00:27; Admin Dose 4 MG; Start 01/22/19 at 23:30; Stop 01/23/19 at 23:29 Acetaminophen (Tylenol Tab) 650 mg ER BRIDGE PRN PO .MILD PAIN 1-3 OR TEMP; Start 01/22/19 at 23:30; Stop 01/23/19 at 23:29 Sodium Chloride 1,000 ml @ 80 mls/hr [id number] IV Last administered on 01/23/19at 00:27; Admin Dose 80 MLS/HR; Start 01/23/19 at 00:17 IV Flush (NS 3 ml) 3 ml PER PROTOCOL IV ; Start 01/23/19 at 00:30 Ondansetron HCl (Zofran Inj) 4 mg Q4H PRN IV NAUSEA/VOMITING Last administered on 01/23/19at 08:22; Admin Dose 4 MG; Start 01/23/19 at 00:30 Acetaminophen (Tylenol Tab) 650 mg Q6H PRN PO .PAIN 1-3 OR TEMP; Start 01/23/19 at 00:30 Hydromorphone HCl (Dilaudid) 0.5 mg Q4H PRN IV SEVERE PAIN LEVEL 7-10 Last ad ministered on 01/23/19at 08:22; Admin Dose 0.5 MG; Start 01/23/19 at 02:30 Hyoscyamine (Levsin (Sl)) 0.125 mg Q4H PRN PO INTESTINAL SPASMS/CRAMPING; Start 01/23/19 at 02:30 Pantoprazole (Protonix Iv) 40 mg DAILY@06 IV Last administered on 01/23/19 06:30; Admin Dose 40 MG; Start 01/23/19 at 06:00 JERRY ROMERO MD Jan 23, 2019 11:53
[2019-01-23] MEDS ORDERED: ACETAMINOPHEN 650 MG SUPP PR PRN (12:00)
[2019-01-23 14:00] VITALS: BP 114/68; PULSE 59; RESP 17
--- NOTE | 2019-01-23 15:29 | CONS ---
Assessment/Plan Assessment/Plan Assessment/Plan (Daily) Assessment: Melena/hematochezia Anemia Biliary duct dilatation on abdominal ultrasound History of gastric bypass Fatty liver Cholelithiasis Plan: EGD/colonoscopy tomorrow Keep n.p.o. after midnight Monitor H&H Transfuse hemoglobin less than 7.5 Monitor LFTs Unable to obtain MRCP due to hardware in the back Start Levsin 3 times daily Patient seen in collaboration with Dr. Bush Consultation Date/Type/Reason Admit Date/Time Jan 22, 2019 at 23:16 Date of Consultation: Jan 23, 2019 Type of Consult GI Reason for Consultation Hematochezia/melena/anemia Date/Time of Note DATE: 01/23/19 TIME: 15:17 Hx of Present Illness This is a 44-year-old female with history of gastric bypass and previous use of NSAIDs who was admitted for hematochezia/melena was found to be anemic. Abdominal ultrasound and CT showing cholelithiasis and mild biliary duct dilatation with fatty liver. Patient states her symptoms started 2 days ago with epigastric abdominal pain and bloody stools. Patient describes blood in the stool from dark to bright red. She denies drinking alcohol or smoking cigarettes. Patient has no history of EGD or colonoscopy. Patient is complaini ng of nausea but denies vomiting, hematemesis, diarrhea or constipation. The plan is to perform an EGD/colonoscopy tomorrow . Risks and benefits of the procedure have been discussed with the patient. Patient is agreeable to the procedure. Unable to obtain MRCP due to presence of the hardware in the back. Will trend LFTs and bilirubin. We will start the patient on clear liquid diet and bowel prep today. Gastrointestinal: no complaints (See HPI) Past Medical History History of gastric bypass Home Meds Active Scripts Nitrofurantoin Monohyd Macrocr* (Macrobid*) 100 Mg Capsr, 100 MG PO BID for 7 Days, CAP Prov:GUS YOUNG MD 10/28/18 Medications Current Medications Sodium Chloride 1,000 ml @ 80 mls/hr [id number] IV Last administered on 01/23/19at 12:15; Admin Dose 80 MLS/HR; Start 01/23/19 at 00:17 IV Flush (NS 3 ml) 3 ml PER PROTOCOL IV ; Start 01/23/19 at 00:30 Ondansetron HCl (Zofran Inj) 4 mg Q4H PRN IV NAUSEA/VOMITING Last administered on 01/23/19at 12:15; Admin Dose 4 MG; Start 01/23/19 at 00:30 Acetaminophen (Tylenol Tab) 650 mg Q6H PRN PO .PAIN 1-3 OR TEMP; Start 01/23/19 at 00:30 Hydromorphone HCl (Dilaudid) 0.5 mg Q4H PRN IV SEVERE PAIN LEVEL 7-10 Last administered on 01/23/19at 12:15; Admin Dose 0.5 MG; Start 01/23/19 at 02:30 Hyoscyamine (Levsin (Sl)) 0.125 mg Q4H PRN PO INTESTINAL SPASMS/CRAMPING; Start 01/23/19 at 02:30 Pantoprazole (Protonix Iv) 40 mg DAILY@06 IV Last administered on 01/23/19at 06:30; Admin Dose 40 MG; Start 01/23/19 at 06:00 Acetaminophen (Tylenol Supp) 650 mg Q6H PRN [place] FEVER; Start 01/23/19 at 12:00 Allergies: Coded Allergies: No Known Allergy (Unverified , 10/28/18) Social History Alcohol Use: none Smoking Status: Never smoker Drug Use: none Exam/Review of Systems Exam Vitals Vital Signs Date Temp Pulse Resp B/P (MAP) Pulse Ox O2 O2 Flow FiO2 Time Delivery Rate 01/23/19 98.9 59 17 114/68 99 Room Air 14:00 (83) Intake and Output 01/22/19 01/22/19 01/23/19 1515:00 23:00 07:00 IntakeIntake Total 1360 ml BalanceBalance 1360 ml Exam PHYSICAL EXAMINATION: GENERAL: Well developed, well nourished, alert & oriented x 3, in no acute distress SKIN: No lesions, no stigmata chronic liver disease, no evidence of bleeding diathesis LYMPHATIC: No palpable lymphadenopathy. HEAD: Normocephalic, atraumatic, no tenderness. EYES: Pupils equal reactive to light and accommodation, full extraocular movements, sclera clear, non-icteric, no discharge. EARS/NOSE AND THROAT: Ears normal, nose normal, oropharynx normal, oral membranes well hydrated without lesions. NECK: Supple, no masses, thyroid normal, JVP within normal limits, carotids normal without bruits. CHEST: Inspection within normal limits. CARDIOVASCULAR: Heart: Regular rate and rhythm, no murmurs, gallops or rubs. Peripheral pulses present within normal limits, no cyanosis, clubbing or edemas. No pulsatile abdominal mass RESPIRATORY: Lungs clear to auscultation and percussion, no wheezing, no rubs GASTROINTESTINAL AND LIVER: Abdomen: Soft, generalized abdominal tenderness, non-distended, no hernias, no masses, no organomegaly, no ascites, no guarding, no rebound tenderness, normoactive bowel sounds. Rectal: Deferred. GENITOURINARY: Female genitalia within normal limits. EXTREMITIES: No cyanosis, clubbing or edema. Results Result Diagram: 01/22/19223901/22/192239 Results 24hrs Laboratory Tests Test 01/22/19 22:40 01/22/19 23:02 01/23/19 04:42 01/23/19 07:20 White Blood 8.0 Count Red Blood Count 4.04 L Hemoglobin 8.8 L Hematocrit 29.6 L Mean Corpuscular 73.3 L Volume Mean Corpuscular 21.8 L Hemoglobin Mean Corpuscular 29.7 L Hemoglobin Teresita nt Red Cell 17.2 H Distribution Width Platelet Count 465 H Mean Platelet 9.5 Volume Immature 0.300 Granulocytes % Neutrophils % 82.8 H Lymphocytes % 12.5 L Monocytes % 3.9 Eosinophils % 0.0 Basophils % 0.5 Nucleated Red 0.0 Blood Cells % Immature 0.020 Granulocytes # Neutrophils # 6.6 Lymphocytes # 1.0 Monocytes # 0.3 Eosinophils # 0.0 Basophils # 0.0 Nucleated Red 0.0 Blood Cells # Erythrocyte 20 Sedimentation Rate Prothrombin Time 13.0 Prothrombin Time 1.0 Ratio INR 0.97 International Normalized Ratio Activated 23.0 Partial Thrombop last Time Urine Color YELLOW YELLOW Urine Clarity SLIGHTLY CLOUDY SLIGHTLY CLOUDY A A Urine pH 6.0 6.0 Urine Specific 1.025 1.046 H [place] Urine Ketones 2+ H 1+ H Urine Nitrite NEGATIVE POSITIVE A Urine Bilirubin NEGATIVE NEGATIVE Urine 1+ H NEGATIVE Urobilinogen Urine Leukocyte NEGATIVE NEGATIVE Esterase Urine > 182 H 8 H Microscopic RBC Urine 2 3 Microscopic WBC Urine Squamous FEW Epithelial Cells Urine Bacteria FEW A FEW A Urine Mucus FEW A Urine Hemoglobin 3+ H 3+ H Urine Glucose 3+ H 2+ H Urine Total 1+ H NEGATIVE Protein Sodium Level 140 Potassium Level 3.4 L Chloride Level 107 Carbon Dioxide 20 L Level Anion Gap 13 Blood Urea 10 Nitrogen Creatinine 0.52 Est Glomerular > 60 Filtrat Rate mL/min Glucose Level 219 # Calcium Level 10.3 H Total Bilirubin 0.6 Direct Bilirubin 0.00 Indirect 0.6 Bilirubin Aspartate Amino 21 Transf (AST/SGOT ) Alanine 17 Aminotransferase (ALT/SGPT) Alkaline 72 Phosphatase Troponin I < 0.012 C-Reactive 0.8 Protein Total Protein 8.4 H Albumin 4.9 Globulin 3.50 H Albumin/Globulin 1.40 Ratio Lipase 99 Procalcitonin 0.05 Urine Opiates Positive Screen Urine Negative Barbiturates Urine Negative Amphetamines Screen Urine Negative Benzodiazepines Screen Urine Cocaine Negative Screen Urine Negative Cannabinoids Ethyl Alcohol < 10.0 H Level POC Beta HCG, NEGATIVE Qualitative Iron Level 41 Total Iron 527 H Binding Capacity Percent Iron 8 L Saturation Ferritin 8.6 Medications Medication Current Medications Sodium Chloride 1,000 ml @ 80 mls/hr [id number] IV Last administered on 01/23/19at 12:15; Admin Dose 80 MLS/HR; Start 01/23/19 at 00:17 IV Flush (NS 3 ml) 3 ml PER PROTOCOL IV ; Start 01/23/19 at 00:30 Ondansetron HCl (Zofran Inj) 4 mg Q4H PRN IV NAUSEA/VOMITING Last administered on 01/23/19at 12:15; Admin Dose 4 MG; Start 01/23/19 at 00:30 Acetaminophen (Tylenol Tab) 650 mg Q6H PRN PO .PAIN 1-3 OR TEMP; Start 01/23/19 at 00:30 Hydromorphone HCl (Dilaudid) 0.5 mg Q4H PRN IV SEVERE PAIN LEVEL 7-10 Last administered on 01/23/19at 12:15; Admin Dose 0.5 MG; Start 01/23/19 at 02:30 Hyoscyamine (Levsin (Sl)) 0.125 mg Q4H PRN PO INTESTINAL SPASMS/CRAMPING; Start 01/23/19 at 02:30 Pantoprazole (Protonix Iv) 40 mg DAILY@06 IV Last administered on 01/23/19at 06:30; Admin Dose 40 MG; Start 01/23/19 at 06:00 Acetaminophen (Tylenol Supp) 650 mg Q6H PRN [place] FEVER; Start 01/23/19 at 12:00 MISTY CAZARES NP Jan 23, 2019 15:28
[2019-01-23] MEDS ORDERED: BISACODYL (EC) 5 MG TAB PO ONE ×2 (15:30→21:00)
[2019-01-23] MEDS ORDERED: MAGNESIUM CITRATE 300 ML BTL PO ONE (17:30)
[2019-01-23] MEDS ORDERED: POLYETHYLENE GLYCOL 3350 119 GM POWDER PO ONE ×2 (18:30→21:00)
[2019-01-23 20:16] VITALS: BP 163/88; PULSE 66; RESP 17
[2019-01-23] MEDS: HYOSCYAMINE 0.125 MG SUBL TAB PO SCH (21:43)
[2019-01-24] VITALS (12 sets, daily range): BP systolic 90–183; BP diastolic 48–86; PULSE 60–81; RESP 15–18
[2019-01-24] MEDS: ONDANSETRON 4 MG INJ IV PRN ×6 (00:01→21:53)
[2019-01-24] MEDS: HYDROmorphONE 0.5 MG/0.5 ML SYG IV PRN ×6 (00:02→21:50)
[2019-01-24] MEDS: SOD CHLORIDE 0.9% 1,000 ML IV SCH (01:20)
[2019-01-24] MEDS: HYOSCYAMINE 0.125 MG SUBL TAB PO SCH ×3 (05:36→21:23)
[2019-01-24] MEDS: PANTOPRAZOLE 40 MG INJ IV SCH (05:36)
[2019-01-24] MEDS: POTASSIUM CHLORIDE 100 ML IVPB SCH ×2 (13:46→18:45)
--- NOTE | 2019-01-24 15:31 | PN ---
Date/Time of Note Date/Time of Note DATE: 01/24/19 TIME: 15:30 Assessment/Plan VTE Prophylaxis Risk score (from Ns)>0 risk: 1 SCD applied (from Ns): Yes Pharmacological prophylaxis: NA/contraindicated Pharm contraindication: bleeding Lines/Catheters IV Catheter Type (from Nrs): Peripheral IV Assessment/Plan Hospital Course 1. Acute blood loss anemia likely secondary to lower GI bleed GI consultation appreciated, plan for EGD and colonoscopy today 2. Morbid obesity status post gastric bypass. If colonoscopy is unremarkable consider hemorrhoidal bleed or even surgical stricture/ulcer 3. Chronic pain disorder on NSAIDs [place]. Continue PPI adjust therapy needs behavioral health chronic pain management 4. Chronic back pain status post surgery more than 12 months ago 5. Chronic fibromyalgia 6. Chronic migraines 7. Chronic rheumatoid arthritis review medications. 8. Gallstones 9. Anemia likely of chronic disease rule out acute blood loss 10. Past substance drug use Prophylaxis: SCDs Result Diagram: 01/24/19 0516 01/24/19 0516 Results 24hrs Laboratory Tests Test 01/23/19 20:57 01/24/19 05:16 Hemoglobin 8.6 L 8.5 L Hematocrit 29.6 L 28.8 L White Blood Count 10.7 # Red Blood Count 3.87 L Mean Corpuscular Volume 74.4 L Mean Corpuscular Hemoglobin 22.0 L Mean Corpuscular Hemoglobin Concent 29.5 L Red Cell Distribution Width 17.9 H Platelet Count 405 Mean Platelet Volume 9.8 Immature Granulocytes % 0.300 Neutrophils % 82.1 H Lymphocytes % 12.0 L Monocytes % 5.2 Eosinophils % 0.0 Basophils % 0.4 Nucleated Red Blood Cells % 0.0 Immature Granulocytes # 0.030 Neutrophils # 8.8 H Lymphocytes # 1.3 Monocytes # 0.6 Eosinophils # 0.0 Basophils # 0.0 Nucleated Red Blood Cells # 0.0 Sodium Level 138 Potassium Level 3.3 L Chloride Level 105 Carbon Dioxide Level 24 Anion Gap 9 Blood Urea Nitrogen 6 L Creatinine 0.48 Est Glomerular Filtrat Rate mL/min > 60 Glucose Level 141 # Hemoglobin A1c 6.0 H Calcium Level 9.3 Phosphorus Level 3.4 Magnesium Level 2.1 Total Bilirubin 0.5 Direct Bilirubin 0.00 Indirect Bilirubin 0.5 Aspartate Amino Transf (AST/SGOT) 21 Alanine Aminotransferase (ALT/SGPT) 21 Alkaline Phosphatase 61 Total Protein 7.5 Albumin 4.2 Globulin 3.30 H Albumin/Globulin Ratio 1.27 Triglycerides Level 61 Cholesterol Level 164 LDL Cholesterol, Calculated 117 HDL Cholesterol 35 Cholesterol/HDL Ratio 4.6 Thyroid Stimulating Hormone (TSH) 0.215 L Subjective 24 Hr Interval Summary Constitutional: no complaints Exam/Review of Systems Exam Vitals Vital Signs Date Temp Pulse Resp B/P (MAP) Pulse Ox O2 O2 Flow FiO2 Time Delivery Rate 01/24/19 98.4 67 18 165/77 99 Room Air 14:00 (106) Intake and Output 01/23/19 01/23/19 01/24/19 1515:00 23:00 07:00 IntakeIntake Total 640 ml 340 ml 1060 ml BalanceBalance 640 ml 340 ml 1060 ml Constitutional: alert Respiratory: clear to auscultation Cardiovascular: regular rate and rhythm Gastrointestinal: soft Musculoskeletal: nl extremities to inspection Results Results 24hrs Laboratory Tests Test 01/23/19 20:57 01/24/19 05:16 Hemoglobin 8.6 L 8.5 L Hematocrit 29.6 L 28.8 L White Blood Count 10.7 # Red Blood Count 3.87 L Mean Corpuscular Volume 74.4 L Mean Corpuscular Hemoglobin 22.0 L Mean Corpuscular Hemoglobin Concent 29.5 L Red Cell Distribution Width 17.9 H Platelet Count 405 Mean Platelet Volume 9.8 Immature Granulocytes % 0.300 Neutrophils % 82.1 H Lymphocytes % 12.0 L Monocytes % 5.2 Eosinophils % 0.0 Basophils % 0.4 Nucleated Red Blood Cells % 0.0 Immature Granulocytes # 0.030 Neutrophils # 8.8 H Lymphocytes # 1.3 Monocytes # 0.6 Eosinophils # 0.0 Basophils # 0.0 Nucleated Red Blood Cells # 0.0 Sodium Level 138 Potassium Level 3.3 L Chloride Level 105 Carbon Dioxide Level 24 Anion Gap 9 Blood Urea Nitrogen 6 L Creatinine 0.48 Est Glomerular Filtrat Rate mL/min > 60 Glucose Level 141 # Hemoglobin A1c 6.0 H Calcium Level 9.3 Phosphorus Level 3.4 Magnesium Level 2.1 Total Bilirubin 0.5 Direct Bilirubin 0.00 Indirect Bilirubin 0.5 Aspartate Amino Transf (AST/SGOT) 21 Alanine Aminotransferase (ALT/SGPT) 21 Alkaline Phosphatase 61 Total Protein 7.5 Albumin 4.2 Globulin 3.30 H Albumin/Globulin Ratio 1.27 Triglycerides Level 61 Cholesterol Level 164 LDL Cholesterol, Calculated 117 HDL Cholesterol 35 Cholesterol/HDL Ratio 4.6 Thyroid Stimulating Hormone (TSH) 0.215 L Medications Medication Current Medications Sodium Chloride 1,000 ml @ 80 mls/hr [id number] IV Last administered on 01/24/19 01:20; Admin Dose 80 MLS/HR; Start 01/23/19 at 00:17 IV Flush (NS 3 ml) 3 ml PER PROTOCOL IV ; Start 01/23/19 at 00:30 Ondansetron HCl (Zofran Inj) 4 mg Q4H PRN IV NAUSEA/VOMITING Last administered on 01/24/19 12:06; Admin Dose 4 MG; Start 01/23/19 at 00:30 Acetaminophen (Tylenol Tab) 650 mg Q6H PRN PO .PAIN 1-3 OR TEMP; Start 01/23/19 at 00:30 Hydromorphone HCl (Dilaudid) 0.5 mg Q4H PRN IV SEVERE PAIN LEVEL 7-10 Last administered on 01/24/19 12:07; Admin Dose 0.5 MG; Start 01/23/19 at 02:30 Pantoprazole (Protonix Iv) 40 mg DAILY@06 IV Last administered on 01/24/19 05:36; Admin Dose 40 MG; Start 01/23/19 at 06:00 Acetaminophen (Tylenol Supp) 650 mg Q6H PRN [place] FEVER; Start 01/23/19 at 12:00 Hyoscyamine (Levsin (Sl)) 0.125 mg Q8 PO Last administered on 01/24/19 05:36; Admin Dose 0.125 MG; Start 01/23/19 at 22:00 Potassium Chloride 100 ml @ 50 mls/hr Q2H IVPB Last administered on 01/24/19at 13:46; Admin Dose 50 MLS/HR; Start 01/24/19 at 13:00; Stop 01/24/19 at 16:59 BOSSMAN SOLANO Jan 24, 2019 15:31
--- NOTE | 2019-01-24 16:26 | PREAC ---
Date/Time of Note Date/Time of Note DATE: 01/24/19 TIME: 16:23 Anesthesia Eval and Record Evaluation Time Pre-Procedure Interview DATE: 01/24/19 TIME: 16:23 Age 44 Sex female NPO: 8 hrs Preoperative diagnosis GI bleed Planned procedure EGD & Colonoscopy Past Medical History Past Medical History: Includes Hepatic: Other (Fatty Liver) Heme: Anemia Surgery & Anesthesia Issues No known issue Meds Anticoagulation: No Beta Gaudencio within 24 hr: No Reason Beta Gaudencio not given: Pt. not on B-Gaudencio Active Scripts Nitrofurantoin Monohyd Macrocr* (Macrobid*) 100 Mg Capsr, 100 MG PO BID for 7 Days, CAP Prov:GUS YOUNG MD 10/28/18 Current Medications Sodium Chloride 1,000 ml @ 80 mls/hr [id number] IV Last administered on 01/24/19at 01:20; Admin Dose 80 MLS/HR; Start 01/23/19 at 00:17 IV Flush (NS 3 ml) 3 ml PER PROTOCOL IV ; Start 01/23/19 at 00:30 Ondansetron HCl (Zofran Inj) 4 mg Q4H PRN IV NAUSEA/VOMITING Last administered on 01/24/19at 12:06; Admin Dose 4 MG; Start 01/23/19 at 00:30 Acetaminophen (Tylenol Tab) 650 mg Q6H PRN PO .PAIN 1-3 OR TEMP; Start 01/23/19 at 00:30 Hydromorphone HCl (Dilaudid) 0.5 mg Q4H PRN IV SEVERE PAIN LEVEL 7-10 Last administered on 01/24/19at 12:07; Admin Dose 0.5 MG; Start 01/23/19 at 02:30 Pantoprazole (Protonix Iv) 40 mg DAILY@06 IV Last administered on 01/24/19at 05:36; Admin Dose 40 MG; Start 01/23/19 at 06:00 Acetaminophen (Tylenol Supp) 650 mg Q6H PRN [place] FEVER; Start 01/23/19 at 12:00 Hyoscyamine (Levsin (Sl)) 0.125 mg Q8 PO Last administered on 01/24/19at 05:36; Admin Dose 0.125 MG; Start 01/23/19 at 22:00 Potassium Chloride 100 ml @ 50 mls/hr Q2H IVPB Last administered on 01/24/19at 13:46; Admin Dose 50 MLS/HR; Start 01/24/19 at 13:00; Stop 01/24/19 at 16:59 Meds reviewed: Yes Allergies Coded Allergies: No Known Allergy (Unverified , 10/28/18) Allergies Reviewed: Yes Labs/Studies Labs Reviewed: Reviewed by anesthesiologist Result Diagram: 01/24/19 0516 01/24/19 0516 Laboratory Tests 01/24/19 05:16 test: N/A Studies: ECG (n/a), CXR (n/a) Pre-procedure Exam Last vitals Vital Signs Date Temp Pulse Resp B/P (MAP) Pulse Ox O2 O2 Flow FiO2 Time Delivery Rate 01/24/19 98.4 67 18 165/77 99 Room Air 14:00 (106) Airway: Adequate mouth opening, Adequate thyromental dist Mallampati: Mallampati II Teeth: Normal Lung: Normal Heart: Normal ASA Physical Status ASA physical status: 3 Emergency: None Planned Anesthetic General/MAC: MAC Planned Pain Management Parenteral pain med Pre-operative Attestations Prior to commencing anesthesia and surgery, the patient was re-evaluated, there was verification of: *The patient's identity *The results of appropriate recent lab work and preoperative vital signs *The above evaluation not changing prior to induction *Anesthetic plan, risk benefits, alternative and complications discussed with patient/family; questions answered; patient/family understands, accepts and wishes to proceed. ZOHREH LOU MD Jan 24, 2019 16:26
--- NOTE | 2019-01-24 17:03 | PAC ---
Date/Time of Note Date/Time of Note DATE: 01/24/19 TIME: 17:03 Post-Anesthesia Notes Post-Anesthesia Note Last documented vital signs Vital Signs Date Temp Pulse Resp B/P (MAP) Pulse Ox O2 O2 Flow FiO2 Time Delivery Rate 01/24/19 98.4 67 18 165/77 99 Room Air 17:00 (106) Activity: WNL Respiratory function: WNL Cardiovascular function: WNL Mental status: Baseline Pain reasonably controlled: Yes Hydration appropriate: Yes Nausea/Vomiting absent: Yes ZOHREH LOU MD Jan 24, 2019 17:03
[2019-01-24] MEDS ORDERED: PROPOFOL 60 ML ONE (17:07)
[2019-01-25] MEDS: SOD CHLORIDE 0.9% 1,000 ML IV SCH ×2 (00:11→02:17)
[2019-01-25 01:30] VITALS: BP 166/68; PULSE 62; RESP 17
[2019-01-25] MEDS: HYDROmorphONE 0.5 MG/0.5 ML SYG IV PRN ×3 (01:58→10:00)
[2019-01-25] MEDS: ONDANSETRON 4 MG INJ IV PRN ×3 (01:58→10:00)
[2019-01-25 02:16] VITALS: BP 167/83; PULSE 66; RESP 17
[2019-01-25] MEDS: HYOSCYAMINE 0.125 MG SUBL TAB PO SCH (06:00)
[2019-01-25] MEDS: PANTOPRAZOLE 40 MG INJ IV SCH (06:00)
[2019-01-25 07:26] VITALS: BP 156/70; PULSE 61; RESP 18
[2019-01-25] MEDS ORDERED: POTASSIUM CHLORIDE (SR) 20 MEQ TAB PO STA (10:46)
--- NOTE | 2019-01-25 10:50 | PDOCDIS ---
Discharge Instructions CONDITION [id number] Patient Condition: [id number] Good HOME CARE INSTRUCTIONS: [id number] Diet Instructions: [id number] Regular ACTIVITY: [id number] Activity Restrictions: [id number] No Restrictions FOLLOW UP/APPOINTMENTS Follow-up Plan FOLLOW UP WITH YOUR PCP IN 1-2 WEEKS BOSSMAN SOLANO Jan 25, 2019 10:50
--- NOTE | 2019-01-25 15:13 | DS ---
Date/Time of Note Date/Time of Note DATE: 01/25/19 TIME: 15:09 Discharge Summary Admission/Discharge Info Admit Date/Time Jan 22, 2019 at 23:16 Discharge Date/Time Jan 25, 2019 at 13:15 Discharge Diagnosis 1. Acute blood loss anemia likely secondary to lower GI bleed from hemorrhoids GI consultation appreciated, EGD and colonoscopy were negative except for hemorrhoids Patient advised to increase fiber intake and start Metamucil No reports of menorrhagia or heavy vaginal bleeding 2. Morbid obesity status post gastric bypass Patient is on a multivitamin that may have issues with depression that may be contributing to anemia 3. Chronic pain disorder on NSAIDs [place]. Continue PPI adjust therapy needs behavioral health chronic pain management 4. Chronic back pain status post surgery more than 12 months ago 5. Chronic fibromyalgia 6. Chronic migraines 7. Chronic rheumatoid arthritis review medications. 8. Gallstones 9. Past substance drug use Patient Condition: Good Hospital Course Patient is a 44-year-old female with history of morbid obesity status post gastric bypass, fibromyalgia and arthritis. Patient presents with abdominal pain and lower GI bleed was found to be anemic. Patient did not require blood transfusion, patient was seen by GI and EGD and colonoscopy were done which showed only hemorrhoids. Patient likely has anemia of chronic disease as well as anemia from previous gastric bypass. Patient is on a multivitamin, patient was advised to increase fiber intake and start Metamucil. Did discharge patient's vitals, labs and his exam are stable. Home Meds Active Scripts Nitrofurantoin Monohyd Macrocr* (Macrobid*) 100 Mg Capsr, 100 MG PO BID for 7 Days, CAP Prov:GUS YOUNG MD 10/28/18 Follow-up Plan FOLLOW UP WITH YOUR PCP IN 1-2 WEEKS Primary Care Provider Not On Staff Doctor Time spent on discharge: > 30 minutes BOSSMAN SOLANO Jan 25, 2019 15:13
== END 2019-01-25 13:15 | disposition home or self-care (01) | DRG 394 ==
LOC: E/R 21:09 → MS3 23:16
PROVIDERS: ADMIT Family Medicine; ATTEND Internal Medicine
PROC: 0DJD8ZZ Inspection of Lower Intestinal Tract, Via Natural or Artificial Opening Endoscopic (ICD-10-PCS; principal; 2019-01-24 12:30)
PROC: 0DJ08ZZ Inspection of Upper Intestinal Tract, Via Natural or Artificial Opening Endoscopic (ICD-10-PCS; 2019-01-24 12:30)
DX: K64.8 Other hemorrhoids (principal); D62 Acute posthemorrhagic anemia; K92.1 Melena; M06.9 Rheumatoid arthritis, unspecified; Z98.84 Bariatric surgery status; G62.9 Polyneuropathy, unspecified; D63.8 Anemia in other chronic diseases classified elsewhere
CPT/HCPCS: 36415; 71045; 74178; 76705; 80048; 80053; 80061; 80307; 81001; 81025; 82728; 83036; 83540; 83690; 83735; 84100; 84145; 84443; 84484; 85014; 85018; 85025; 85610; 85651; 85730; 86140; 86850; 86900; 86901; 93005; 96361; 96374; 96375; C9113; J1170; J2270; J2405; J3480; J7030; Q9967